=== PATIENT | female | born 1950 | race Asian ===

== ENCOUNTER → 2020-03-19 | Outpatient (CLI) | payer OTHER ==
[2020-03-20 17:12] LABS: QUANTIFERON, TB GOLD PLUS Positive (Negative)
== END | disposition home or self-care (01) ==
LOC: MSR 11:17
PROVIDERS: ATTEND Internal Medicine
DX: R76.11 Nonspecific reaction to tuberculin skin test without active tuberculosis (principal)
CPT/HCPCS: 86480; 86592; 87491; 87591; 36415-L1; 36415-TC; 71046; 71046-TC